=== PATIENT | female | born 1995 | race Caucasian/White ===

== ENCOUNTER 2017-03-13 14:47 | Emergency (ER) | payer OTHER ==
[~2017-03-13] VITALS: Ht 162.6 cm; Wt 137.1 kg
[2017-03-13 15:45] VITALS: Ht 162.6 cm; Wt 137.1 kg
[2017-03-13 20:06] LABS: BASOPHIL % 0.3 % (0-2); PLATELET COUNT 386 x10^3mcL (130-400)
[2017-03-13 20:11] LABS: RED CELL DISTRIBUTION WIDTH 16.9 % (11.5-14.5)
[2017-03-13 21:35] VITALS: BP 135/66
== END 2017-03-13 21:35 | disposition home or self-care (01) ==
LOC: ED 14:47
PROVIDERS: Emergency Medicine
DX: N93.9 Abnormal uterine and vaginal bleeding, unspecified (principal)
CPT/HCPCS: 36415

== ENCOUNTER 2017-11-24 17:35 | Emergency (ER) | payer OTHER ==
[~2017-11-24] VITALS: Ht 162.6 cm; Wt 132.9 kg
[2017-11-24 17:39] VITALS: Ht 162.6 cm; Wt 132.9 kg
[2017-11-24 19:26] VITALS: BP 119/66
== END 2017-11-24 19:26 | disposition home or self-care (01) ==
LOC: ED 17:35
DX: K21.9 Gastro-esophageal reflux disease without esophagitis (principal); R19.7 Diarrhea, unspecified; F41.9 Anxiety disorder, unspecified; F32.9 Major depressive disorder, single episode, unspecified; J45.909 Unspecified asthma, uncomplicated

== ENCOUNTER 2018-07-16 09:37 | Emergency (ER) | payer OTHER ==
[~2018-07-16] VITALS: Ht 162.6 cm; Wt 126.3 kg
[2018-07-16 09:43] VITALS: Ht 162.6 cm; Wt 126.3 kg
[2018-07-16 10:33] LABS: BASOPHIL % 0.4 % (0-2); PLATELET COUNT 327 x10^3mcL (130-400)
[2018-07-16 10:40] LABS: RED CELL DISTRIBUTION WIDTH 17.4 % (11.5-14.5)
[2018-07-16 10:53] LABS: CALCIUM 9.2 mg/dL (8.5-10.1); CARBON DIOXIDE 22.9 mmol/L (21-32); CHLORIDE SERUM 101 mmol/L (98-107); CREATININE SERUM 0.7 mg/dL (0.6-1.0); GFR1 > 60 mL/min; GLUCOSE SERUM 97 mg/dL (74-106); POTASSIUM SERUM 3.8 mmol/L (3.5-5.1); SODIUM SERUM 136 mmol/L (136-145)
[2018-07-16 10:57] LABS: ALBUMIN 3.7 g/dL (3.4-5.0); ALKALINE PHOSPHATASE 72 U/L (46-116); ALT/SGPT 28 U/L (14-59); AST/SGOT 14 U/L (15-37); BILIRUBIN TOTAL 0.38 mg/dL (0.20-1.00); LIPASE 85 IU/L (73-393); TOTAL PROTEIN, SERUM 7.6 g/dL (6.4-8.2)
[2018-07-16 11:36] LABS: microscopic required? YES; urine erythrocyte 2+ (NEGATIVE)
[2018-07-16 13:06] VITALS: BP 101/50
== END 2018-07-16 13:06 | disposition home or self-care (01) ==
LOC: ED 09:37
PROVIDERS: Emergency Medicine
DX: O21.0 Mild hyperemesis gravidarum (principal); O23.41 Unspecified infection of urinary tract in pregnancy, first trimester; O99.611 Diseases of the digestive system complicating pregnancy, first trimester; K21.9 Gastro-esophageal reflux disease without esophagitis; O99.341 Other mental disorders complicating pregnancy, first trimester; F41.9 Anxiety disorder, unspecified; J45.909 Unspecified asthma, uncomplicated; Z3A.11 11 weeks gestation of pregnancy
CPT/HCPCS: J2405; J7030